=== PATIENT | female | born 1990 | race African-American/Black ===

== ENCOUNTER 2016-08-05 07:46 | Emergency (ER) | payer SELFPAY ==
[~2016-08-05] VITALS: Ht 170.2 cm; Wt 70.0 kg
[~2016-08-05 07:46] MED LIST: MMW SS; PENI500T PO
[2016-08-05 07:50] VITALS: BP 124/83; PULSE 74; RESP 16; TEMP 98.9; O2SAT 98
--- NOTE | 2016-08-05 08:02 | PD ---
HPI Chief Complaint: Headache Time Seen by Provider: 07:56 Travel History International Travel<30 days: No Contact w/Intl Traveler<30days: No Traveled to known affect area: No History of Present Illness HPI 25-year-old Afro[place] female presents emergency Department with head injury last evening in her home. Patient states she was cooking and turned quickly and hit her head on the cupboard as above her sink. She has localized swelling and tenderness. She had no loss of consciousness. She has no dizziness, nausea , or vomiting. Patient states she is requiring note for work so she can work today. Patient has not taken anything for pain and does not wish to have anything now. Patient has no known drug allergies. PFSH Past Medical History Hx Anticoagulant Therapy: No Cardiovascular Problems: No Chemotherapy: No Cerebrovascular Accident: No Diabetes: No Respiratory: No : 0 Para: 0 Past Surgical History Hysterectomy: No Social History Alcohol Use: Yes Tobacco Use: Yes Substance Use: No Allergies-Medications (Allergen,Severity, Reaction): Coded Allergies: No Known Allergies (Verified , 11/07/14) Reported Meds & Prescriptions Reported Meds & Active Scripts Active Magic Mouthwash-Diphenhy Formula (Lidocaine/Diphenhydr/Alum/Mg/Simeth) Ml 10 Ml SS Q6HR PRN 7 Days MAGIC MOUTHWASH CONTAINS 1/3 VISCOUS LIDOCAINE,1/3 MAALOX, AND 1/3 BENADRYL. Pen Vk (Penicillin V Potassium) 500 Mg Tab 500 Mg PO TID 10 Days Review of Systems Except as stated in HPI: all other systems reviewed are Neg General / Constitutional: No: Fever Eyes: No: Visual changes HENT: No: Headaches Cardiovascular: No: Chest Pain or Discomfort Respiratory: No: Shortness of Breath Gastrointestinal: No: Abdominal Pain Genitourinary: No: Dysuria Musculoskeletal: No: Pain Skin: No Rash Neurologic: No: Weakness Psychiatric: No: Depression Endocrine: No: Polydipsia Hematologic/Lymphatic: No: Easy Bruising Physical Exam Narrative GENERAL: Patient appears in no acute distress. SKIN: Warm and dry. Normal color. Normal turgor. Patient has a swelling in the left medial forehead consistent with her history. There is no open wound or abrasion. HEAD: Atraumatic. Normocephalic. Mildly tender at contusion site to the forehead. EYES: Pupils equal and round. No scleral icterus. No injection or drainage. ENT: No nasal bleeding or discharge. Mucous membranes pink and moist. Pharynx is clear. TMs are clear. Airway is patent. NECK: Trachea midline. Supple and nontender. CARDIOVASCULAR: Regular rate and rhythm. RESPIRATORY: No accessory muscle use. Clear to auscultation. Breath sounds equal bilaterally. MUSCULOSKELETAL: Extremities without clubbing, cyanosis, or edema. No obvious deformities. NEUROLOGICAL: Awake and alert. No obvious cranial nerve deficits. Motor grossly within normal limits. Five out of 5 muscle strength in the arms and legs. Normal speech. PSYCHIATRIC: Appropriate mood and affect; insight and judgment normal. Data Data Last Documented VS Vital Signs Date Time Temp Pulse Resp B/P Pulse Ox O2 Delivery O2 Flow Rate FiO2 08/05/16 07:50 98.9 74 16 124/83 98 Room Air MDM Medical Decision Making Medical Screen Exam Complete: Yes Emergency Medical Condition: Yes Differential Diagnosis Scalp contusion. Head injury. Need for work note. Narrative Course Patient's medically stable at time of exam. Patient is cleared for work with note given. Patient taking [id number] ibuprofen and Tylenol and use ice as needed. Diagnosis Primary Impression: Contusion of scalp, initial encounter Patient Instructions: Contusion in Adults (ED), General Instructions Departure Forms: Work Release Enter return to work date: Aug 05, 2016 Additional Instructions: Patient is cleared for work with note given. Patient taking [id number] ibuprofen and Tylenol and use ice as needed. Med/Other Pt SpecificInfo: No Meds Exist/No RX given Disposition: 01 DISCHARGE HOME Condition: Stable Huseyin Diaz Aug 05, 2016 08:02
== END 2016-08-05 08:12 | disposition home or self-care (01) ==
LOC: NEPK 07:46
DX: S00.03XA Contusion of scalp, initial encounter (principal); Z72.0 Tobacco use; W22.09XA Striking against other stationary object, initial encounter; Y93.G3 Activity, cooking and baking; Y92.000 Kitchen of unspecified non-institutional (private) residence as the place of occurrence of the external cause
CPT/HCPCS: 99282